=== PATIENT | female | born 1985 | race Caucasian/White ===

== ENCOUNTER 2017-08-12 18:48 | Emergency (ER) | payer BC ==
--- NOTE | 2017-08-12 19:17 | ED Physician Documentation ---
Fall - HISTORIAN Historian: patient - HPI Chief Complaint: Fall Additional Information: pt slipped bathtub fell w/ severe low back pain rad both legs. had bm this am and has urinated since w/o difficulty-but severe pain w/att lift legs and slr pos from start---DTR= normal Onset: hours (0200) Where: other (hotel) Context: slipped, fell from standing r: moderate, severe Associated Symptoms:: no loss of consciousness. denies: memory impairment Location of Pain/Injury: upper back, mid back, lower back (minimal upper and lo back - no apparent head neck pain) Injury to Right Extremity: none Injury to Left Extremity: none - ROS CONST: no problems NEURO: denies: dizziness, anxiety MS/SKIN/LYMPH: weakness. denies: numbness, neck pain, back pain, ankle swelling , leg swelling CVS/RESP: none. denies: chest pain, shortness of breath, palpitations GI/: denies: problems urinating, nausea, vomiting - PAST HX Past History: other (kidney stone) Allergies/Adverse Reactions: Allergies Allergy/AdvReac Type Severity Reaction Status Date / Time tramadol Allergy Vomiting Verified 08/12/17 19:12 Home Medications: Ambulatory Orders Medication Instructions Recorded Aspirin [Rodolfo] 81 mg PO DAILY 08/12/17 - SOCIAL HX Smoking History: cigarettes Alcohol Use: none Drug Use: none - FAMILY HX Family History: no significant history - REVIEWED ASSESSMENTS Nursing Assessment Reviewed: Yes Vitals Reviewed: Yes ED Results Lab/Radiology - Orders Orders: ED Orders Category Date Time Status Place IV Lock 1T Care 08/12/17 19:[address] LUMBAR SPINE WITHOUT CONTRAST [CT L-SPINE W/O Exams 08/12/17 Ordered CONTRAST] Stat Orphenadrine Citrate [Norflex] Med 08/12/17 19:13 Once 60 mg IV NOW ONE fentaNYL CITRATE/PF [Duragesic] Med 08/12/17 19:11 Once 50 mcg IVP NOW ONE Fall Physical Exam - Physical Exam General Appearance: moderate distress Head: non-tender, no swelling, no obvious injury Neck: non-tender, painless ROM Eye: JACQUE, EOMI ENT: nml external inspection Resp/CVS: chest non-tender, no ecchymosis, breath sounds nml, no resp. distress , heart sounds nml. No: decreased breath sounds, wheezes, rales, rhonchi Abdomen: soft Neuro: oriented x3, sensation nml, motor nml, depressed mood/affect Skin: color nml, no rash. No: cyanosis, diaphoresis Back: CVA tenderness (R), CVA tenderness (L) Extremities: No: atraumatic, pelvis stable Joint: joints nml - Pita Coma Score Eyes Open: Spontaneous Speech: Oriented Motor: Obeys Commands Discharge Clincal Impression: fall w/advanced lumbar pain Comments: home meds avoid bending meds with ibu 600tid--see rx. f/u soon w/pcp when arrives home. may need MRI Disposition: 01 HOME, SELF-CARE Decision to Admit: NO Decision Time: 21:06
[2017-08-12] MEDS: fentaNYL CITRATE/PF 100 MCG/ 2ML AMP IVP ONE ×2 (19:25→20:35)
[2017-08-12] MEDS: ORPHENADRINE CITRATE 60 MG/2ML IV ONE (19:25)
--- NOTE | 2017-08-12 19:59 | Diagnostic Imaging Report ---
FATUMA MARIA [facility] [address] [facility] [address] [place] [address]. [id number] Report Submission Date: Aug 12, 2017 7:57:34 PM ADMITTING MANAGER Patient Study Name: BURAK MANCINI Date: Aug 12, 2017 7:40:08 PM ADMITTING MANAGER Modality Type: CT\SR Gender: F Description: CT L-SPINE W/O CONTRAS : 85 Institution: [facility] Physician: FAUTMA MARIA CT lumbar spine History: Fall, low back pain Technique: Images through the lumbar spine were obtained. Multiplanar reconstructions were performed. Findings: No fracture, subluxation or abnormal bone production or destruction is identified. The vertebral bodies and intervertebral disc spaces are of normal height. Spinal canal and facet joints are normal. Incidentally noted is a 7 mm right lower pole renal calculus. Impression: Right nephrolithiasis. Normal lumbar spine. Electronically signed on Aug 12, 2017 7:57:34 PM ADMITTING MANAGER by: Lamine TAVERAS
[2017-08-12] MEDS: HYDROcodone /APAP 5/325 1 EACH TABLET PO ONE (21:05)
[2017-08-12 21:50] VITALS: BP 114/68
== END 2017-08-12 21:30 | disposition home or self-care (01) ==
LOC: ED 18:48
DX: S39.92XA Unspecified injury of lower back, initial encounter (principal); W18.39XA Other fall on same level, initial encounter; Y93.89 Activity, other specified; Y92.59 Other trade areas as the place of occurrence of the external cause
CPT/HCPCS: 72131; 96374; 96375; 96376; 99283; 99284; J2360; J3010; S1016